=== PATIENT | male | born 1955 | race Caucasian/White ===

== ENCOUNTER 2021-05-23 23:49 | Emergency (ER) | payer SELFPAY ==
[~2021-05-23] VITALS: Ht 332.7 cm; Wt 136.1 kg
[~2021-05-23 23:49] MED LIST: PANTOPRAZOLE SO40 MG PO
== END 2021-05-24 00:15 | disposition home or self-care (01) ==
LOC: ER 05-24 00:03
DX: R11.0 Nausea (principal); I89.0 Lymphedema, not elsewhere classified; I12.0 Hypertensive chronic kidney disease with stage 5 chronic kidney disease or end stage renal disease; E11.22 Type 2 diabetes mellitus with diabetic chronic kidney disease; N18.6 End stage renal disease; Z99.2 Dependence on renal dialysis; K76.9 Liver disease, unspecified
CPT/HCPCS: 99282